=== PATIENT | female | born 1970 | race Caucasian/White ===

== ENCOUNTER 2017-09-21 12:13 | Inpatient (IN) ==
--- NOTE | 2017-09-21 09:36 | Discharge Summary ---
<Sudarshan Vasquez - Last Filed: 09/21/17 14:05> Date of Encounter: 09/21/17 - Discharge Diagnosis (1) Arthritis of right knee Priority: Primary Status: Chronic (2) Status post total right knee replacement Priority: Primary Status: Acute - Hospital Course Hospital course: Ms. Bryson is a 47 year old female - Time Spent with Patient Total time spent providing and/or coordinating discharge services: - Discharge Medications Home Medications: Losartan/Hydrochlorothiazide [Hyzaar 100-25 Tablet] 1 each PO DAILY 06/21/15 [ History] Metaxalone [Skelaxin] 800 mg PO BID PRN 06/21/15 [History] Metoprolol XL (24 HR) Succ [Toprol Xl] 25 mg PO DAILY 06/21/15 [History] Venlafaxine HCl [Effexor Xr] 75 mg PO BID 06/21/15 [History] diazePAM [Valium] 5 mg PO BID PRN 06/21/15 [History] Atorvastatin [Lipitor] 40 mg PO HS 01/10/17 [History] Aspirin Enteric Coated [Aspirin EC] 325 mg PO BID #20 tablet. 09/21/17 [Rx] Ibuprofen [Motrin] 800 mg PO Q8HR #30 tablet 09/21/17 [Rx] OxyCODONE Immed Rel [Roxicodone 5 MG] 5 mg PO Q4HR PRN 5 Days #20 tablet [Rx] Allergies/Adverse Reactions: 3 Allergy/AdvReac Type Severity Reaction Status Date / Time No Known Allergies Allergy Verified 09/13/17 14:37 Primary care physician: Garry Chavez DO - Patient Status Disposition: Home Health Service Condition: Good - Discharge Instructions Follow Up With: Kavin Chavez DO [Primary Care Provider] - 10/08/17 9:30 am <Opal Barillas - Last Filed: 09/24/17 13:30> Orders not resulted at time of discharge: Pending orders 09/21/17 14:46 Surgical Pathology [PTH] Routine Date of Encounter: 09/24/17 Time of Encounter: 09:30 - Discharge Diagnosis (1) Status post total right knee replacement Priority: Primary Status: Acute (2) Arthritis of right knee Priority: Primary Status: Chronic - Hospital Course Hospital course: Ms. Bryson is a 47 year old female POD#3 Date of procedure: 09/21/17 Pre-op diagnosis: Right knee arthritis Post-op diagnosis: same Procedure: Right robotic-assisted Total knee replacement Dr. Vasquez Patient stayed through weekend secondary to difficulty with pain control. Patient remained alert and oriented x 3 and distally neurovascularly intact through her hospital stay. Operative extremity - Incision intact with zipline and honeycomb, dressing is clean and dry. All questions and concerns addressed. Educated on use of incentive spirometer, ambulation, and hydration. Patient educated on post-operative restrictions and care. Plan: Therapy participation: continue - patient states she has stairs at home - work with therapy this afternoon on this, then discharge with home health Pain control: PO PRN, Cryocuff/ice pack Knee immobilizer while sleeping x 2 weeks. Discharge plan: Home with home health today after working with therapy on stairs. - Time Spent with Patient Total time spent providing and/or coordinating discharge services: Less than 30 minutes Date of admission: 09/21/17 17:01 Primary care physician: Garry Chavez DO Consults: 09/21/17 17:30 Consult to Occupational Therapy [CONS] Routine Comment: Evaluate, develop and implement POC Reason for Consult: post knee surgery Does patient have active BEDREST order?: No Is patient medically & hemodynamically stable?: Yes Consult to Orthopedic Navigator [CONS] [CONS] Routine Consult to Physical Therapy [CONS] Routine Comment: Evaluate, develop and impliment POC Reason for Consult: post knee surgery Does patient have active BEDREST order?: No Is patient medically & hemodynamically stable?: Yes Consult to Composing Room Machinist Apprentice [CONS] Routine Reason for SW Consult: post op joint replacement RT Post Op Consult [CONS] Routine Anticipated date of discharge: 09/24/17 Labs on day of discharge: Laboratory Results - last 72 hr 09/21/17 09/21/17 09/22/17 12:36 15:31 00:58 Hgb 12.9 11.3 L D Hct 39.6 35.3 Sodium Potassium Chloride Carbon Dioxide BUN Creatinine Est GFR ( Amer) Est GFR (Non-Af Amer) BUN/Creatinine Ratio Glucose Calculated Osmolality Calcium POC Urine HCG, Qual Negative 09/22/17 09/23/17 09/23/17 00:58 05:58 05:58 Hgb 10.2 L Hct 31.6 L Sodium 132 L 137 Potassium 4.1 3.7 Chloride 101 102 Carbon Dioxide 25 28 BUN 14 15 Creatinine 0.97 0.90 Est GFR ( Amer) > 60 > 60 Est GFR (Non-Af Amer) > 60 > 60 BUN/Creatinine Ratio 14 17 Glucose 161 H 120 H Calculated Osmolality 278 L 286 Calcium 9.2 8.9 POC Urine HCG, Qual Vital Signs Temp Pulse Resp BP Pulse Ox 09/24/17 12:30 112/75 09/24/17 11:42 97.9 F 85 16 108/70 98 09/24/17 11:32 87/49 09/24/17 06:56 98.5 F 78 16 90/59 96 09/24/17 04:28 99.1 F 82 16 116/70 94 09/23/17 23:35 99.1 F 82 16 90/54 94 09/23/17 19:56 98.9 F 86 16 92/59 97 09/23/17 15:38 97.6 F 75 92/57 96 Intake and Output 09/23/17 09/24/17 09/24/17 23:59 07:59 15:59 Intake Total 1110 / 1110 700 / 700 Balance 1110 / 1110 700 / 700 Intake: Oral 1110 / 1110 700 / 700 Other: Meal Dinner Percent of Meal Consumed 100% Weight 120.9 kg - Impressions ITS Impressions Knee X-Ray 09/21/17 09:38 IMPRESSION: Right knee arthroplasty. No radiographic evidence complication. D/ / Rajat Jha MD / Rajat Jha MD Interpreting Provider: Rajat Jha MD - Patient Status Functional capacity at discharge: uses cane/walker Overall status at discharge: patient is progressing back to baseline - Diet and Activity Activity: as per physical therapy Diet: advance to your usual diet
[2017-09-21] MEDS ORDERED: *HR* FentaNYL (PF) 100 MCG/2 ML VIAL ONE ×2 (12:22→14:40)
[2017-09-21] MEDS ORDERED: Ondansetron 4 MG/2 ML VIAL ONE (12:22)
[2017-09-21] MEDS ORDERED: Lidocaine -MPF 2% 2 ML VIAL ONE (12:22)
[2017-09-21] MEDS ORDERED: *HR* Midazolam HCl 2 MG/2 ML VIAL ONE (12:23)
[2017-09-21] MEDS ORDERED: *HR* Propofol 200 MG/20 ML VIAL IVP ONE (12:24)
[2017-09-21] MEDS ORDERED: Dexamethasone 4 MG/ML VIAL ONE ×2 (12:27→14:08)
--- NOTE | 2017-09-21 12:32 | History & Physical Report ---
Date of Encounter: 09/21/17 Time of Encounter: 12:32 24 Hour HP Update - Instructions Instructions: If the History and Physical is less than 30 days old and was completed prior to A.M. admission and or procedure and has NOT been updated on calendar day of procedure please complete this update prior to performing procedure. - Update Patient reports changes in Medical Condition: No Changes in examination, assessment, or condition: No Changes in Medication: No Preop tests/diagnostics Reviewed: Yes Surgery Remains Indicated: Yes Consent for Planned Operative Procedure(s) Verified: Yes - Pre-Operative Checklist Preoperative Checklist Indicated: No Prophylactic Antibiotic Ordered: Yes Is VTE Prophylaxis Indicated?: Yes
[2017-09-21] MEDS ORDERED: CeFAZolin Syr 3,000MG/30 ML 3,000 MG/30 ML SYRINGE IVPB ONE (12:48)
[2017-09-21] MEDS ORDERED: Famotidine 20 MG/2 ML VIAL IVP ONE (12:48)
[2017-09-21] MEDS ORDERED: Acetaminophen IV 1,000 MG/100 ML INFUS..BTL IVPB ONE (12:49)
[2017-09-21] MEDS ORDERED: Pregabalin 75 MG CAPSULE PO ONE ×2 (12:49→16:58)
--- NOTE | 2017-09-21 12:49 | Physician Discharge Referral ---
<Sudarshan Vasquez - Last Filed: 09/21/17 15:00> - Diagnosis (1) Arthritis of right knee Status: Chronic (2) Status post total right knee replacement Status: Acute - Respiratory Orders Smoking Cessation: Smoking cessation has been advised. For more information, call the [place] Tobacco Quit Line at 6-986-VLJF-NOW. - Transfer Medications Home Medications: Losartan/Hydrochlorothiazide [Hyzaar 100-25 Tablet] 1 each PO DAILY 06/21/15 [ History] Metaxalone [Skelaxin] 800 mg PO BID PRN 06/21/15 [History] Metoprolol XL (24 HR) Succ [Toprol Xl] 25 mg PO DAILY 06/21/15 [History] Venlafaxine HCl [Effexor Xr] 75 mg PO BID 06/21/15 [History] diazePAM [Valium] 5 mg PO BID PRN 06/21/15 [History] Atorvastatin [Lipitor] 40 mg PO HS 01/10/17 [History] Aspirin Enteric Coated [Aspirin EC] 325 mg PO BID #20 tablet. 09/21/17 [Rx] Ibuprofen [Motrin] 800 mg PO Q8HR #30 tablet 09/21/17 [Rx] OxyCODONE Immed Rel [Roxicodone 5 MG] 5 mg PO Q4HR PRN 5 Days #20 tablet [Rx] Allergies/Adverse Reactions: 3 Allergy/AdvReac Type Severity Reaction Status Date / Time No Known Allergies Allergy Verified 09/13/17 14:37 Certification: Further, I certify that my clinical findings support that this patient is homebound (i.e. absences from home require considerable and taxing effort and are for medical reasons or mandaen services or infrequently or short duration when for other reasons) because: Homebound Reason: Patient requires assistance of a person or device to safely leave home Attestation: My signature below is to certify that this patient is under my care and that I, or nurse practitioner, or a physician's library circulation assistant working with me, has a face-to -face encounter with this patient. <Opal Barillas - Last Filed: 09/21/17 21:37> Home Health/Hosp Referral Info Transfer to: Home Health Attending Provider: Dr. Sudarshan Vasquez Provider in Charge Post Discharge: PCP - Diagnosis (1) Status post total right knee replacement Priority: Primary Status: Acute (2) Arthritis of right knee Priority: Primary Status: Chronic - Respiratory Orders Smoking Cessation: Smoking cessation has been advised. For more information, call the [place] Tobacco Quit Line at 2-970-WHZC-NOW. - Dressing/Wound Care Site: Right knee Type of Dressing/Treatments w/Frequency: Opsite placed. Keep dressing intact until first follow up appointment. If greater than 50% saturated, notify office, remove dressing and place appropriate dressing back in place. Leave Zipline intact. Opsite dressing is water resistant, not water-proof. OK to shower, but do not get dressing wet. - Diet/Nutrition Diet/Nutrition Orders: Regular - Activity Activity Orders: Up ad chandler, Ambulate, Chair, Walker Activity: List: Total Knee replacement Precautions x 6 weeks Apply cold therapy wrap 3-6x/day for 20 minutes at a time. Encourage ambulation throughout the day and incentive spirometer 10x/hour. Elevate affected extremity above heart as tolerated. Brace: Wear knee immobilizer at night x 2 weeks. - Services Needed Following services are medically necessary services: Nursing, Home Health Aide, Physical Therapy, Occupational Therapy, Med Social Work Certification: Further, I certify that my clinical findings support that this patient is homebound (i.e. absences from home require considerable and taxing effort and are for medical reasons or mandaen services or infrequently or short duration when for other reasons) because: Homebound Reason: Post-surgery restriction and or conditions limit ability to leave home Attestation: My signature below is to certify that this patient is under my care and that I, or nurse practitioner, or a physician library circulation assistant working with me, has a face-to- face encounter with this patient.
--- NOTE | 2017-09-21 12:49 | Physician Discharge Referral ---
<Sudarshan Vasquezh - Last Filed: 09/21/17 15:00> - Diagnosis (1) Arthritis of right knee Status: Chronic (2) Status post total right knee replacement Status: Acute - Transfer Medications Home Medications: Losartan/Hydrochlorothiazide [Hyzaar 100-25 Tablet] 1 each PO DAILY 06/21/15 [ History] Metaxalone [Skelaxin] 800 mg PO BID PRN 06/21/15 [History] Metoprolol XL (24 HR) Succ [Toprol Xl] 25 mg PO DAILY 06/21/15 [History] Venlafaxine HCl [Effexor Xr] 75 mg PO BID 06/21/15 [History] diazePAM [Valium] 5 mg PO BID PRN 06/21/15 [History] Atorvastatin [Lipitor] 40 mg PO HS 01/10/17 [History] Aspirin Enteric Coated [Aspirin EC] 325 mg PO BID #20 tablet. 09/21/17 [Rx] Ibuprofen [Motrin] 800 mg PO Q8HR #30 tablet 09/21/17 [Rx] OxyCODONE Immed Rel [Roxicodone 5 MG] 5 mg PO Q4HR PRN 5 Days #20 tablet [Rx] Allergies/Adverse Reactions: 3 Allergy/AdvReac Type Severity Reaction Status Date / Time No Known Allergies Allergy Verified 09/13/17 14:37 - Respiratory Orders Smoking Cessation: Smoking cessation has been advised. For more information, call the [employer] Quit Line at 2-150-HEHNNOW. CERTIFICATION: I certify that the transfer of the above named patient to an Extended Care Facility is necessary for the continuing treatment of the diagnosis listed. The above information is true and accurate reflection of patient's current condition. Confidential - Redisclosure prohibited without a patient's written consent. <Opal Barillas - Last Filed: 09/21/17 21:38> ExtendedCare Referral Info Transfer To: [facility] Provider in Charge: Dr Sudarshan Vasquez Provider in Charge after Transfer: PCP - Diagnosis (1) Status post total right knee replacement Priority: Primary Status: Acute (2) Arthritis of right knee Priority: Primary Status: Chronic Expected Duration of Placement: less than 30 days Prognosis: Good Aware of Diagnosis: Patient Aware of Prognosis: Patient - Respiratory Orders Smoking Cessation: Smoking cessation has been advised. For more information, call the [place] Tobacco Quit Line at 3-025-LKAB-NOW. - Ancillary Orders May use pressure relief devices daily prn, May go on CAROLYN w/family/respon republican w /meds at nurse discretion PRN, May consult with Dentist, Retail Supervisor, Band Manager PRN - Mobility Orders Chair, Ambulate - Rehabiliation Orders Rehab Potential: Good Rehab Orders: Evaluation for Physical Therapy, Evaluation for Occupational Therapy Other: Total Knee replacement Precautions x 6 weeks Apply cold therapy wrap 3-6x/day for 20 minutes at a time. Encourage ambulation throughout the day and incentive spirometer 10x/hour. Elevate affected extremity above heart as tolerated. Brace: Wear knee immobilizer at night x 2 weeks. - Treatments Skin tear care topically daily PRN per policy List/Other: Opsite placed. Keep dressing intact until first follow up appointment. If greater than 50% saturated, notify office, remove dressing and place appropriate dressing back in place. Leave Zipline intact. Opsite dressing is water resistant, not water-proof. OK to shower, but do not get dressing wet. - Diet Orders Regular CERTIFICATION: I certify that the transfer of the above named patient to an Extended Care Facility is necessary for the continuing treatment of the diagnosis listed. The above information is true and accurate reflection of patient's current condition. Confidential - Redisclosure prohibited without a patient's written consent.
[2017-09-21] MEDS ORDERED: ROPIVACAINE HCL/PF 0.5% 30 ML VIAL ONE (12:50)
[2017-09-21] MEDS ORDERED: Bupivacaine/Clonidine Syringe 1 EACH SYRINGE ONE ×2 (12:50→16:12)
[2017-09-21] MEDS ORDERED: Ethanol\\Acetic Acid\\Na Ace\\Ben 1,000 ML IRRIG.SOLN IR ONE (12:52)
--- NOTE | 2017-09-21 12:53 | Anesthesia Evaluation PreOp ---
Date of Encounter: 09/21/17 Time of Encounter: 12:53 - Past History Planned Operation: Robotic R-TKR Cardiac History: HTN, Hyperlipidemia Pulmonary History: Denies Any Significant HX ARNP History: Other (Anxiety/Depression. Chronic Pain. Neck Pain,) Other Medical History: GERD Anesthesia History: No Prior Anesthetic Complications, Past Anesthesia (C- section, Jane, Spinal Fusion, R-knee scope/PMM, R-knee scope, PatelooFemoral ligament reconstruction 12/2016) : No Test: Negative Alcohol Use: occasionally Drug use: none Medications and Allergies Hydrocodone/Acetaminophen [[place] 7.5-325 Tablet] 1 tab PO Q6H PRN MDD 3 tablets daily 06/21/15 [History] Losartan/Hydrochlorothiazide [Hyzaar 100-25 Tablet] 1 each PO DAILY 06/21/15 [ History] Metaxalone [Skelaxin] 800 mg PO BID PRN 06/21/15 [History] Metoprolol XL (24 HR) Succ [Toprol Xl] 25 mg PO DAILY 06/21/15 [History] Venlafaxine HCl [Effexor Xr] 75 mg PO BID 06/21/15 [History] diazePAM [Valium] 5 mg PO BID PRN 06/21/15 [History] Atorvastatin [Lipitor] 40 mg PO HS 01/10/17 [History] Clindamycin [Cleocin] 150 mg PO Q6HR 2 Days #7 capsule 01/10/17 [Rx] Ibuprofen [Motrin] 600 mg PO Q6HR PRN 7 Days #28 tab 01/10/17 [Rx] Lactobacillus Acidophilus [Acidophilus Probiotic] 1 mg PO DAILY 01/10/17 [ History] Aspirin Enteric Coated [Aspirin EC] 325 mg PO BID #20 tablet. 09/21/17 [Rx] Ibuprofen [Motrin] 800 mg PO Q8HR #30 tablet 09/21/17 [Rx] OxyCODONE Immed Rel [Roxicodone 5 MG] 5 mg PO Q4HR PRN 5 Days #20 tablet [Rx] 3 Allergy/AdvReac Type Severity Reaction Status Date / Time No Known Allergies Allergy Verified 09/13/17 14:37 - Meds/Allergy Pre-op Review Medications Reviewed: Yes Allergies Reviewed: Yes Beta Blockers on Current Med List: No Anesthesia Results - Labs Laboratory Tests 09/13/17 09/13/17 09/13/17 14:38 14:55 14:55 WBC 6.9 Hgb 13.8 Plt Count 299 PT 10.1 INR 0.9 APTT 35.1 Sodium Potassium Chloride Carbon Dioxide BUN Creatinine Est GFR ( Amer) Est GFR (Non-Af Amer) Serum , Qual Inconclusive 09/13/17 14:55 WBC Hgb Plt Count PT INR APTT Sodium 137 Potassium 3.6 Chloride 99 Carbon Dioxide 31 H BUN 16 Creatinine 1.02 Est GFR ( Amer) > 60 Est GFR (Non-Af Amer) 58 L Serum , Qual Anesthesia Exam O2 Sat Height 1.65 m Height 1.65 m Weight 121.563 kg Weight 121.563 kg O2 Sat by Pulse Oximetry 93 Vital Signs Temp Pulse Resp BP Pulse Ox 98.5 F 80 18 132/87 93 09/21/17 12:37 09/21/17 12:37 09/21/17 12:37 09/21/17 12:37 09/21/17 12:37 Height: 5'5" Weight: 268# BMI = 46 NPO (# of Hours): MNoc - HEENT Pupil (Motor): Pupils equal, EOMI Mallampati: II Teeth: Normal ([place]) Oral Opening: Greater than 3 - ARNP LOC: Oriented ARNP Motor: Normal RUE, Normal LUE, Normal RLE, Normal LLE, Normal Face ARNP Sensory: Normal: RUE, LUE, RLE, LLE, Face - Cardiac Rhythm: Regular Murmur: None - Pulmonary Breath Sounds: bilateral Clear Respiratory Effort: Symmetrical Anesthesia Assess/Plan ASA Score: 3 Modified [place] Scale for Level of Consciousness: Cooperative, oriented, and tranquil Anesthetic Plan: General, Regional Monitoring Plan: Standard Monitors Recovery Plan: PACU Anes Supervising Prov Stmt: Pt seen/evaluated, R&B Discussed, questions answered and consent obtained .Juan C Starks MD
[2017-09-21] MEDS ORDERED: Pregabalin 75 MG CAPSULE ONE ×2 (13:08→16:55)
[2017-09-21] MEDS: Ringers Solution, Lactated 1,000 ML IVC SCH ×3 (13:11→21:10)
--- NOTE | 2017-09-21 13:31 | Anesthesia Procedures ---
Date of Encounter: 09/21/17 Time of Encounter: 13:25 Procedures: Anesthesia - Nerve Block Procedure Date: 09/21/17 Time: 13:25 Surgical Procedure: right robotic total knee Checklist: Correct Patient Identifier, Correct procedure, History checked Correct side: Right Blood Thinner: No Monitor Applied: EKG, BP, Pulse Oximetry Supplemental Oxygen via Nasal Cannula (L/min): 2 Sedation: Versed (mg): 2 Sedation: Fentanyl (mcg): 100 Indication: Post Op Analgesia Pre-op Neuro Deficits: No Block Type: Other (adductor canal/iPACK) Catheter placed: No Sterile Technique: Yes Ultrasound used: Yes Anatomy identified: Yes Visual spread of Local: Yes Neuro Stimulation: No Blood on Needle Aspiration: No Smooth Injection of Local: Yes Pain with Injection of Local: No Prep: Chlorhexadine Needle: 21 x 100 mm Stimuplex Local: 0.25% Bupivicaine w/Clonidine 20 mcg/cc (20 ml), Ropivacaine (0.5% with 8 of decadron 30 ml) Volume (cc): 50 ml total Number of Attempts: 1 Complications: None/effective block Vitals: Vital Signs/O2 Sat, Most Current Temp Pulse Resp BP Pulse Ox 98.5 F 72 16 120/80 98 09/21/17 12:56 09/21/17 13:28 09/21/17 13:28 09/21/17 13:28 09/21/17 13:28 Comments: performed by yasmin pfeiffer
[2017-09-21] MEDS ORDERED: EPHEDrine 50 MG/ML VIAL ONE (14:35)
[2017-09-21] MEDS ORDERED: *HR* OxyCODONE Immed Rel 5 MG TABLET PO PRN (14:38)
[2017-09-21] MEDS ORDERED: Naloxone 0.4 MG/ML INJ IVP PRN ×2 (14:38→17:30)
[2017-09-21] MEDS ORDERED: *HR* Promethazine 25 MG/ML VIAL IVP PRN (14:38)
[2017-09-21] MEDS ORDERED: *HR* Labetalol 100 MG/20 ML MDV IVP PRN (14:38)
--- NOTE | 2017-09-21 15:03 | Orthopedic Operative Note ---
Date of procedure: 09/21/17 Pre-op diagnosis: Right knee arthritis Post-op diagnosis: same Procedure: Procedure right: robotic-assisted Total knee replacement Estimated blood loss: 200 cc Hardware: Metal and polyethylene replacement. [place] Femur: 4 Tibia: 3 TS insert:13 Patella: 36 Exam Under anesthesia: 9 degree hyperextension 7 degree varus as calculated by the robot full flexion and no instability Procedural Notes: Grade 3 arthritic changes medial compartment patellofemoral joint. Operative procedure: The patient was brought to the operating room and placed on the operating room table. After general anesthesia was administered the operative knee was examined. Findings were noted in the exam under anesthesia. The operative extremity was prepped and draped in sterile surgical fashion. The patient received IV antibiotics prior to skin incision. A standard midline incision was made centered over the patella. The incision was made through the skin and subcutaneous tissue. A medial parapatellar tendon approach was performed. Care was taken to preserve tissue along the medial aspect of the patella. And to protect the patella tendon. The deep MCL was released off the medial tibia. The infra patella fat pad was excised. The patella was everted and cut was made at the level of the insertion of the quadriceps and patella tendon. The patella was sized to 36 the guide was seated and the lug holes are drilled. Knee was brought into flexion. Patient noted to have grade 3 arthritic changes medial compartment and patellofemoral joint. Steinmann pins were placed in the tibia and the femur for the tibial and femoral arrays respectively. Checkpoints were also placed in the tibia and the femur for calculation purposes. The knee including the femur and the tibial registered. Osteophytes, ACL and PCL were excised at this point. Extension and flexion were assessed with a valgus stress components were adjusted on the computer to balance the knee. Femoral cuts were made first with robotic assistance, these included the anterior cut posterior cuts chamfer cuts. Tibial cut was then performed with robotic assistance as well. Bone fragments were removed, as well as the medial and lateral meniscus. The size 4 femoral guide was seated box cut was made lug holes are drilled. The size 3 tibial tray was seated and prepared with the fin cutter. Trial reduction with the 13 TS Nancy revealed extension of 0 degree and 4 degree varus full flexion. No varus valgus instability. Trial reduction revealed excellent patella tracking. All trial components were removed all bony surfaces were irrigated. The Tibia was seated followed by the femur, The Nancy size 13 was seated and secured patella. Patient had similar findings for motion and stability. The knee was then irrigated out with 2 L of pulse irrigation. The extensor mechanism was closed with #2 FiberWire suture and #2 PDS suture. The subcutaneous tissue was then irrigated and closed deep with #1 PDS suture superficially with 0 PDS suture and skin was closed with zip tie The patient was then placed in a sterile dressing and a postoperative brace extubated and transferred to recovery room in stable condition. Anesthesia: GETA Surgeon: Sudarshan Vasquez Was there an mail handler assistant present: No Estimated blood loss (cc): 200 Condition: stable Disposition: PACU
[2017-09-21] MEDS: *HR* HYDROmorphone (PF) 1 MG/ML SYRINGE IVP PRN ×4 (15:19→15:49)
[2017-09-21] MEDS: *HR* Meperidine 25 MG/ML SYRINGE IVP PRN ×2 (15:48→16:03)
[2017-09-21] MEDS ORDERED: *HR* HYDROmorphone (PF) 1 MG/ML SYRINGE IVP PRN (16:10)
[2017-09-21] MEDS ORDERED: Tetracaine/PF 20 MG/2 ML AMPUL ONE (16:12)
[2017-09-21] MEDS ORDERED: *HR* Midazolam HCl 5 MG/5 ML VIAL IVP ONE ×2 (16:16→16:18)
[2017-09-21 16:27] LABS: Hematocrit 39.6 % (35.3-44.9); Hemoglobin 12.9 g/dL (11.5-15.4)
--- NOTE | 2017-09-21 16:38 | Anesthesia Procedures ---
Date of Encounter: 09/21/17 Time of Encounter: 16:20 Procedures: Anesthesia - Nerve Block Procedure Date: 09/21/17 Time: 16:20 Allergies/Adv Reactions: NKda Surgical Procedure: R-TKR Checklist: Correct Patient Identifier, Correct procedure, History checked Correct side: Right Blood Thinner: No Monitor Applied: EKG, BP, Pulse Oximetry Supplemental Oxygen via Nasal Cannula (L/min): 3 Sedation: Versed (mg): 3 Sedation: Fentanyl (mcg): 0 Indication: Post Op Analgesia Pre-op Neuro Deficits: Yes (Pain, decreased ROM) Block Type: Femoral Catheter placed: No Sterile Technique: Yes Ultrasound used: Yes Anatomy identified: Yes Visual spread of Local: Yes Neuro Stimulation: No Blood on Needle Aspiration: No Smooth Injection of Local: Yes Pain with Injection of Local: No Prep: Chlorhexadine Needle: 21 x 100 mm Stimuplex Local: 0.25% Bupivicaine w/Clonidine 20 mcg/cc, Tetracaine ( + 40mg ), Other (& Decadron ) Volume (cc): 44 Number of Attempts: 1 Vitals: see PACU vitals Anes Supervising Prov Stmt: CTSP re: Post-op surgical pain in PACU. Pt agreed to rescue PNB. Femoral performed at Bedside in PACU without difficulty by JALIL Nixon. VSS and pt comfortable throughout. No immediate complications and pt tolerated procedure well. Juan C Starks MD
[2017-09-21] MEDS ORDERED: *HR* Magnesium Sulfate 1 GM/2 ML VIAL ONE (16:51)
[2017-09-21] MEDS ORDERED: Temazepam 15 MG CAPSULE PO PRN (17:30)
[2017-09-21] MEDS ORDERED: Ondansetron 4 MG/2 ML VIAL IVP PRN (17:30)
[2017-09-21] MEDS ORDERED: MOM Conc 10 ML UD.LIQ PO PRN (17:30)
[2017-09-21] MEDS ORDERED: CeFAZolin Syr 3,000MG/30 ML 3,000 MG/30 ML SYRINGE IVPB SCH (17:30)
[2017-09-21] MEDS ORDERED: Sennosides 8.6 MG TABLET PO PRN (17:30)
[2017-09-21] MEDS ORDERED: *HR* Enoxaparin 30 MG/0.3 ML SYRINGE SQ SCH (18:00)
--- NOTE | 2017-09-21 18:18 | Anesthesia Evaluation Post Op ---
Date of Encounter: 09/21/17 Time of Encounter: 17:15 - Vital Signs Vital Signs: Vital Signs Temp Pulse Resp BP Pulse Ox 09/21/17 17:11 97.8 F 73 14 107/70 95 09/21/17 17:01 75 14 109/74 94 09/21/17 16:51 58 14 107/65 92 09/21/17 16:41 97.5 F L 71 14 101/77 94 09/21/17 16:31 57 14 104/69 100 09/21/17 16:21 56 14 111/59 100 09/21/17 16:11 97.8 F 57 14 116/68 94 09/21/17 16:01 63 14 107/65 94 09/21/17 15:51 54 18 99/60 97 09/21/17 15:41 97.5 F L 70 18 121/70 96 09/21/17 15:31 74 18 118/72 98 09/21/17 15:21 74 18 118/72 98 09/21/17 15:11 97.1 F L 74 18 122/99 97 09/21/17 13:47 70 16 115/80 99 09/21/17 13:37 98.5 F 71 18 108/69 99 09/21/17 13:35 71 18 108/69 99 09/21/17 13:28 72 16 120/80 98 09/21/17 13:15 75 16 122/84 97 09/21/17 12:56 98.5 F 80 18 132/87 93 09/21/17 12:37 98.5 F 80 18 132/87 93 Intake and Output 09/21/17 09/21/17 09/21/17 07:59 15:59 23:59 Intake Total 1000 / 1000 Output Total 200 / 200 Balance -200 / -200 1000 / 1000 Intake: IV Fluids 1000 / 1000 Lactated Ringers 1,000 ML @ 75 1000 / 1000 mls/hr IVC .[id number] [facility] Rx#: [id number] Output: Estimated Blood Loss 200 / 200 Other: Weight 121.563 kg Patient Weight 09/21/17 23:59 Weight 121.563 kg - Lungs Lungs: Clear Ascult./Percussion - Airway Airway: Non-obstructed - Cardiovascular Regular Rate - Mental Status Mental Status: Alert & Oriented, Answers Appropriately - Pain Pain Scale: 5 Pain Scale used: Numeric (1 - 10) - Nausea Vomiting Nausea Vomiting: Not Present - Hydration Hydration: Tolerates oral liquids, Has not voided - Discharge PostOp Status: Transfer Patient to floor Anes Supervising Prov Stmt: PT seen/evaluated, VSS And pt has met criteria for discharge to floor. - Raudel.
[2017-09-21] MEDS: *HR* Enoxaparin 30 MG/0.3 ML SYRINGE SQ SCH (18:23)
[2017-09-21] MEDS: *HR* OxyCODONE Immed Rel 5 MG TABLET PO PRN ×2 (18:23→23:37)
[2017-09-21] MEDS: ceFAZolin 3,000 MG in 0.9 % Sodium Chloride 100 ML IVPB SCH (21:07)
[2017-09-21] MEDS: *HR* OxyCODONE/APAP 5/325 TABLET PO PRN (21:08)
[2017-09-22 01:53] LABS: Hematocrit 35.3 % (35.3-44.9)
[2017-09-22 01:57] LABS: Hemoglobin 11.3 g/dL (11.5-15.4)
[2017-09-22 02:06] LABS: BUN/Creatinine Ratio 14 (6-26); Blood Urea Nitrogen 14 mg/dL (6-20); Calcium 9.2 mg/dL (8.6-10.3); Carbon Dioxide 25 mEq/L (23-29); Chloride 101 mEq/L (98-107); Glucose 161 mg/dL (70-105); Osmolality,Calculated 278 (280-300); Potassium 4.1 mEq/L (3.5-5.1); Sodium 132 mEq/L (136-145); eGFR For Non-African Americans > 60 (> 60)
[2017-09-22] MEDS: *HR* OxyCODONE/APAP 5/325 TABLET PO PRN ×2 (04:43→09:20)
[2017-09-22] MEDS: *HR* Enoxaparin 30 MG/0.3 ML SYRINGE SQ SCH ×2 (05:29→17:12)
[2017-09-22] MEDS: ceFAZolin 3,000 MG in 0.9 % Sodium Chloride 100 ML IVPB SCH (05:30)
[2017-09-22] MEDS: Ringers Solution, Lactated 1,000 ML IVC SCH (07:41)
[2017-09-22] MEDS: Metoprolol XL (24 HR) Succ 25 MG TAB.ER.24H PO SCH (09:20)
[2017-09-22] MEDS: Losartan/HCTZ 50-12.5 TABLET PO SCH (09:20)
--- NOTE | 2017-09-22 09:34 | Orthopedics Progress Note ---
Date of Encounter: 09/22/17 Time of Encounter: 09:32 Subjective Interval history: No overnight events. Knee pain is present but tolerable. Has been up with therapy. Afebrile vital signs stable hemoglobin 11.3 General: No acute distress Knee immobilizer in place operative extremity, dressing is clean dry and intact Distally neurovascularly intact to motor and sensory exam. Continue postoperative management for R TKA Ambulate with therapy. PO pain control. Discharge planning. Objective Vital signs: Vital Signs Temp Pulse Resp BP Pulse Ox 09/22/17 09:23 98 09/22/17 06:45 97.8 F 68 16 134/76 98 09/22/17 04:28 97.5 F L 64 14 132/79 97 09/21/17 23:08 97.9 F 84 14 110/70 96 09/21/17 20:20 97.9 F 81 16 134/84 96 09/21/17 19:20 98.5 F 79 16 109/72 93 09/21/17 18:20 98.0 F 72 18 110/70 94 09/21/17 17:50 97.8 F 76 17 98/67 95 09/21/17 17:11 97.8 F 73 14 107/70 95 09/21/17 17:01 75 14 109/74 94 09/21/17 16:51 58 14 107/65 92 09/21/17 16:41 97.5 F L 71 14 101/77 94 09/21/17 16:31 57 14 104/69 100 09/21/17 16:21 56 14 111/59 100 09/21/17 16:11 97.8 F 57 14 116/68 94 09/21/17 16:01 63 14 107/65 94 18 15:51 54 18 99/60 97 09/21/17 15:41 97.5 F L 70 18 121/70 96 18 15:31 74 18 118/72 98 18 15:21 74 18 118/72 98 18 15:11 97.1 F L 74 18 122/99 97 09/21/17 13:47 70 16 115/80 99 /18 13:37 98.5 F 71 18 108/69 99 18 13:35 71 18 108/69 99 18 13:28 72 16 120/80 98 08/03/18 13:15 75 16 122/84 97 09/21/17 12:56 98.5 F 80 18 132/87 93 09/21/17 12:37 98.5 F 80 18 132/87 93 Intake and Output 09/21/17 09/22/17 09/22/17 23:59 07:59 15:59 Intake Total 1200 / 1200 Output Total 700 / 700 1300 / 1300 Balance 500 / 500 -1300 / -1300 Intake: IV Fluids 1100 / 1100 Lactated Ringers 1,000 ML @ 75 1000 / 1000 mls/hr IVC .[id number] [facility] Rx#: [id number] Ancef 3,000 MG In 0.9 % Sodium 100 / 100 Chloride 100 ML @ 200 mls/hr IVPB Q8H [facility] Rx#:[id number] Oral 100 / 100 Output: Urine 700 / 700 1300 / 1300 - Labs CBC & BMP: 09/22/17 00:58 09/22/17 00:58 Labs: Abnormal lab results Hgb 11.3 g/dL (11.5-15.4) L D 09/22/17 00:58 Sodium 132 mEq/L (136-145) L 09/22/17 00:58 Glucose 161 mg/dL (70-105) H 09/22/17 00:58 Calculated Osmolality 278 (280-300) L 09/22/17 00:58 - VTE Documentation of Mechanical Device: Venous foot pump, device Consult Discharge Plan - Plan Referrals: Kavin Chavez DO [Primary Care Provider] -
[2017-09-22] MEDS: *HR* OxyCODONE Immed Rel 5 MG TABLET PO PRN ×3 (11:06→19:38)
[2017-09-22] MEDS: diazePAM 5 MG TABLET PO PRN (14:46)
[2017-09-22] MEDS: traMADol 50 MG TABLET PO PRN ×2 (16:16→22:49)
[2017-09-22] MEDS: *HR* Morphine Sulfate SR (12 HR) 15 MG TABLET.ER PO PRN (18:20)
[2017-09-23] MEDS: *HR* OxyCODONE Immed Rel 5 MG TABLET PO PRN ×6 (00:42→22:14)
[2017-09-23] MEDS: diazePAM 5 MG TABLET PO PRN (00:49)
[2017-09-23] MEDS: *HR* Enoxaparin 30 MG/0.3 ML SYRINGE SQ SCH ×2 (04:54→17:17)
[2017-09-23 06:26] LABS: Hematocrit 31.6 % (35.3-44.9); Hemoglobin 10.2 g/dL (11.5-15.4)
[2017-09-23] MEDS ORDERED: Acetaminophen IV 1,000 MG/100 ML INFUS..BTL IVPB PRN (06:34)
[2017-09-23] MEDS: Ketorolac 30 MG/ML VIAL IVP PRN (07:25)
[2017-09-23 08:06] LABS: BUN/Creatinine Ratio 17 (6-26); Blood Urea Nitrogen 15 mg/dL (6-20); Calcium 8.9 mg/dL (8.6-10.3); Carbon Dioxide 28 mEq/L (23-29); Chloride 102 mEq/L (98-107); Glucose 120 mg/dL (70-105); Osmolality,Calculated 286 (280-300); Potassium 3.7 mEq/L (3.5-5.1); Sodium 137 mEq/L (136-145); eGFR For Non-African Americans > 60 (> 60)
[2017-09-23] MEDS: Losartan/HCTZ 50-12.5 TABLET PO SCH (08:13)
[2017-09-23] MEDS: Metoprolol XL (24 HR) Succ 25 MG TAB.ER.24H PO SCH (08:13)
[2017-09-23] MEDS: *HR* Morphine Sulfate SR (12 HR) 15 MG TABLET.ER PO PRN (08:32)
--- NOTE | 2017-09-23 10:23 | Orthopedics Progress Note ---
Date of Encounter: 09/23/17 Time of Encounter: 10:23 Subjective Interval history: No overnight events. Resting comfortably. Has been up with therapy. Afebrile vital signs stable hemoglobin 10.2 General: No acute distress Knee immobilizer in place operative extremity, dressing is clean dry and intact Distally neurovascularly intact to motor and sensory exam. Continue postoperative management for R TKA Ambulate with therapy. PO pain control. Discharge planning. Objective Vital signs: Vital Signs Temp Pulse Resp BP Pulse Ox 09/23/17 08:25 98.2 F 82 14 131/84 96 09/22/17 23:58 98.2 F 70 16 119/75 97 09/22/17 19:55 97.8 F 83 16 119/78 94 09/22/17 11:04 97.9 F 85 16 120/77 97 Intake and Output 09/22/17 09/23/17 09/23/17 23:59 07:59 15:59 Intake Total 300 / 300 600 / 600 500 / 500 Balance 300 / 300 600 / 600 500 / 500 Intake: Oral 300 / 300 600 / 600 500 / 500 Other: Meal Breakfast Percent of Meal Consumed 90% # Voids 1 - Labs CBC & BMP: 09/23/17 05:58 09/23/17 05:58 Labs: Abnormal lab results Hgb 10.2 g/dL (11.5-15.4) L 09/23/17 05:58 Hct 31.6 % (35.3-44.9) L 09/23/17 05:58 Glucose 120 mg/dL (70-105) H 09/23/17 05:58 - VTE Documentation of Mechanical Device: Venous foot pump, device Consult Discharge Plan - Plan Referrals: Kavin Chavez DO [Primary Care Provider] -
[2017-09-23] MEDS: Ringers Solution, Lactated 1,000 ML IVC SCH (10:28)
[2017-09-24] MEDS: *HR* OxyCODONE Immed Rel 5 MG TABLET PO PRN (04:47)
[2017-09-24] MEDS: *HR* Enoxaparin 30 MG/0.3 ML SYRINGE SQ SCH (04:48)
[2017-09-24] MEDS: Ketorolac 30 MG/ML VIAL IVP PRN (04:48)
[2017-09-24] MEDS ORDERED: *HR* OxyCODONE Immed Rel 5 MG TABLET PO PRN (08:49)
[2017-09-24] MEDS: Metoprolol XL (24 HR) Succ 25 MG TAB.ER.24H PO SCH (09:05)
--- NOTE | 2017-09-24 09:50 | Orthopedics Progress Note ---
Date of Encounter: 09/24/17 Time of Encounter: 09:15 - Assessment and Plan (1) Status post total right knee replacement Current Visit: Yes Status: Acute (2) Arthritis of right knee Current Visit: Yes Status: Chronic Subjective Principal diagnosis: s/p R TKR Interval history: POD#3 Date of procedure: 09/21/17 Pre-op diagnosis: Right knee arthritis Post-op diagnosis: same Procedure: Right robotic-assisted Total knee replacement Dr. Vasquez No overnight events. Patient stayed through weekend secondary to difficulty with pain control. Patient seen at bedside. Afebrile. Vital signs stable. Labwork and medications reviewed. Exam: Patient sitting in bed. No acute distress. Alert and oriented x 3 Operative extremity - Incision intact with zipline and honeycomb, dressing is clean and dry. No calf tenderness to palpation bilaterally. Distally neurovascularly intact to motor and sensory exam. All questions and concerns addressed. Educated on use of incentive spirometer, ambulation, and hydration. Patient educated on post-operative restrictions and care. Plan: Continue postoperative management for R TKR Therapy participation: continue - patient states she has stairs at home - work with therapy this afternoon on this, then discharge. Pain control: PO PRN, Cryocuff/ice pack Knee immobilizer while sleeping x 2 weeks. Discharge plan: Home with home health today after working with therapy on stairs. Objective Vital signs: Vital Signs Temp Pulse Resp BP Pulse Ox 09/24/17 06:56 98.5 F 78 16 90/59 96 09/24/17 04:28 99.1 F 82 16 116/70 94 09/23/17 23:35 99.1 F 82 16 90/54 94 09/23/17 19:56 98.9 F 86 16 92/59 97 09/23/17 15:38 97.6 F 75 92/57 96 09/23/17 11:47 97.4 F L 85 16 118/65 96 Intake and Output 09/23/17 09/24/17 09/24/17 23:59 07:59 15:59 Intake Total 1110 / 1110 700 / 700 Balance 1110 / 1110 700 / 700 Intake: Oral 1110 / 1110 700 / 700 Other: Meal Dinner Percent of Meal Consumed 100% Weight 120.9 kg - Labs CBC & BMP: 09/23/17 05:58 09/23/17 05:58 Labs: Abnormal lab results Hgb 10.2 g/dL (11.5-15.4) L 09/23/17 05:58 Hct 31.6 % (35.3-44.9) L 09/23/17 05:58 Glucose 120 mg/dL (70-105) H 09/23/17 05:58 - VTE Documentation of Mechanical Device: Venous foot pump, device Consult Discharge Plan - Plan Referrals: Kavin Chavez DO [Primary Care Provider] -
[2017-09-24] MEDS: Losartan/HCTZ 50-12.5 TABLET PO SCH (11:41)
[2017-09-24 12:30] VITALS: BP 112/75
== END 2017-09-24 13:38 | disposition home health service (06) | DRG 470 ==
LOC: SAMDAY 12:13 → 3NENU 17:01
PROVIDERS: ADMIT Orthopaedic Surgery; ATTEND Orthopaedic Surgery

== ENCOUNTER 2019-08-25 14:08 | Inpatient (IN) ==
[2019-08-25] MEDS ORDERED: *HR* Labetalol 20 MG/4 ML SYRINGE IVP PRN (14:26)
[2019-08-25] MEDS ORDERED: Ondansetron 4 MG/2 ML VIAL IVP PRN ×2 (14:26→20:02)
[2019-08-25] MEDS ORDERED: *HR* Promethazine 25 MG/ML VIAL IVP PRN ×2 (14:26→20:02)
[2019-08-25] MEDS ORDERED: *HR* Midazolam HCl 2 MG/2 ML VIAL ONE (14:52)
[2019-08-25] MEDS ORDERED: Ropivacaine/PF 0.5% 30 ML VIAL ONE (14:52)
[2019-08-25] MEDS ORDERED: *HR* FentaNYL (PF) 100 MCG/2 ML VIAL ONE (14:52)
[2019-08-25] MEDS ORDERED: Celecoxib 200 MG CAPSULE PO ONE (14:55)
[2019-08-25] MEDS ORDERED: Celecoxib 100 MG CAPSULE PO ONE (14:55)
[2019-08-25] MEDS ORDERED: CeFAZolin Syr 2,000MG/20 ML 2,000 MG/20 ML SYRINGE IVPB ONE (14:55)
[2019-08-25] MEDS ORDERED: Famotidine 20 MG/2 ML VIAL IVP ONE (14:55)
[2019-08-25] MEDS ORDERED: *HR* OxyCODONE ER (12 HR) 10 MG TABLET PO ONE (14:55)
[2019-08-25] MEDS ORDERED: Ringers Solution, Lactated 1,000 ML IVC SCH ×2 (15:00→20:02)
[2019-08-25] MEDS ORDERED: Ethanol\\Acetic Acid\\Na Ace\\Ben 1,000 ML IRRIG.SOLN IR ONE (15:11)
[2019-08-25] MEDS ORDERED: Vancomycin 1,000 MG VIAL ONE (15:11)
[2019-08-25] MEDS ORDERED: *HR* Succinylcholine 200 MG/10 ML VIAL IVP ONE (15:21)
[2019-08-25] MEDS ORDERED: Ondansetron 4 MG/2 ML VIAL ONE (15:21)
[2019-08-25] MEDS ORDERED: Lidocaine -MPF 4% 5 ML AMPUL ONE (15:21)
[2019-08-25] MEDS ORDERED: *HR* Propofol 200 MG/20 ML VIAL IVP ONE (15:21)
[2019-08-25] MEDS ORDERED: Lidocaine -MPF 2% 2 ML VIAL ONE (15:21)
[2019-08-25] MEDS ORDERED: *HR* Rocuronium Bromide 50 MG/5 ML VIAL ONE (15:21)
[2019-08-25] MEDS ORDERED: Dexamethasone 4 MG/ML VIAL ONE (15:21)
[2019-08-25] MEDS ORDERED: *HR* HYDROMORPHONE 2 MG/ML VIAL ONE (15:51)
[2019-08-25] MEDS ORDERED: Tranexamic Acid 1,000 MG/10 ML VIAL ONE (15:52)
[2019-08-25] MEDS ORDERED: *HR* PHENYLEPHRINE 1,000 MCG/10 ML SYRINGE IVP ONE (16:15)
[2019-08-25] MEDS ORDERED: Total Joint Mixture (50 ml) INTRAART ONE (16:55)
[2019-08-25] MEDS ORDERED: Neostigmine Methylsulfate 3 MG/3 ML SYRINGE ONE (17:11)
[2019-08-25] MEDS: *HR* HYDROmorphone (PF) 1 MG/ML SYRINGE IVP PRN ×6 (18:01→18:58)
[2019-08-25] MEDS ORDERED: *HR* HYDROmorphone PF 0.5 MG/0.5 ML SYRINGE IVP PRN (18:32)
[2019-08-25] MEDS ORDERED: Acetaminophen IV 1,000 MG/100 ML INFUS..BTL IVPB ONE (18:35)
[2019-08-25] MEDS ORDERED: D5% in Water 1,000 ML IVC PRN (20:02)
[2019-08-25] MEDS ORDERED: Metoprolol XL (24 HR) Succ 25 MG TAB.ER.24H PO PRN (20:02)
[2019-08-25] MEDS ORDERED: Naloxone 0.4 MG/ML INJ IVP PRN (20:02)
[2019-08-25] MEDS ORDERED: Sennosides 8.6 MG TABLET PO PRN (20:02)
[2019-08-25] MEDS ORDERED: MOM Conc 10 ML UD.LIQ PO PRN (20:02)
[2019-08-25] MEDS ORDERED: Dextrose Gel 15 GM/37.5 ML TUBE PO PRN ×2 (20:02)
[2019-08-25] MEDS ORDERED: *HR* Dextrose 50 % in Water (Vial) 50 ML VIAL IVP PRN (20:02)
[2019-08-25] MEDS ORDERED: hydroCHLOROthiazide 25 MG TABLET PO PRN (20:02)
[2019-08-25 20:24] LABS: Hematocrit 34.9 % (35.3-44.9); Hemoglobin 10.8 g/dL (11.5-15.4)
[2019-08-25] MEDS: HYDROcodone BIT/Homatropine 5 MG TABLET PO PRN (20:46)
[2019-08-25] MEDS: Ascorbic Acid 500 MG TABLET PO SCH (20:46)
[2019-08-25] MEDS ORDERED: Insulin LISPRO 300 UNITS/3 ML VIAL SQ SCH (21:00)
[2019-08-25] MEDS: Venlafaxine XR (24 HR) 75 MG CAP.ER.24H PO SCH (21:03)
[2019-08-25] MEDS: *HR* OxyCODONE Immed Rel 5 MG TABLET PO PRN (22:39)
[2019-08-26] MEDS: HYDROcodone BIT/Homatropine 5 MG TABLET PO PRN ×3 (00:49→10:54)
[2019-08-26] MEDS: CeFAZolin 2 GM/120 ML BAG IVPB SCH ×2 (00:49→08:15)
[2019-08-26] MEDS: *HR* OxyCODONE Immed Rel 5 MG TABLET PO PRN ×3 (03:41→12:38)
[2019-08-26 06:52] LABS: Hematocrit 33.8 % (35.3-44.9); Hemoglobin 10.2 g/dL (11.5-15.4); Immature Granulocytes % 0.3 % (0-4); Lymphocytes # 0.6 K/mcL (0.6-4.6); Lymphocytes % 7.2 %; Mean Corpuscular HGB Conc 30.2 g/dL (31.6-35.5); Mean Corpuscular Hemoglobin 26.8 pg (28.0-33.3); Mean Corpuscular Volume 88.7 fL (83.0-100.0); Mean Platelet Volume 11.9 fL (9.4-12.4); Monocytes # 0.4 K/mcL (0.0-1.3); Monocytes % 4.2 %; Neutrophils # 7.7 K/mcL (1.6-8.9); Platelet Count 272 K/mcL (140-400); Red Blood Count 3.81 M/mcL (3.82-4.97); Red Cell Distribution Width 14.5 % (11.5-14.5); Segmented Neutrophils % 88.3 %; White Blood Count 8.7 K/mcL (4.3-11.1)
[2019-08-26 07:15] LABS: BUN/Creatinine Ratio 17 (6-26); Blood Urea Nitrogen 19 mg/dL (6-20); Calcium 9.7 mg/dL (8.6-10.3); Carbon Dioxide 26 mEq/L (23-29); Chloride 103 mEq/L (98-107); Glucose 154 mg/dL (70-105); Osmolality,Calculated 283 (280-300); Potassium 4.9 mEq/L (3.5-5.1); Sodium 134 mEq/L (136-145); eGFR For African Americans > 60 (> 60); eGFR For Non-African Americans 51 (> 60)
[2019-08-26] MEDS: Venlafaxine XR (24 HR) 75 MG CAP.ER.24H PO SCH (08:12)
[2019-08-26] MEDS: Ascorbic Acid 500 MG TABLET PO SCH (08:13)
[2019-08-26] MEDS ORDERED: Cyanocobalamin (B-12) 1,000 MCG TABLET PO SCH (09:00)
[2019-08-26] MEDS ORDERED: Multivit/Ca/Min/Fe/FA 1 TAB TABLET PO SCH (09:00)
[2019-08-26] MEDS ORDERED: Aspirin Enteric Coated 81 MG Tablet PO SCH ×2 (09:00)
[2019-08-26] MEDS ORDERED: NON-FORMULARY MEDICATION 1 EACH EACH (Multivitamin [Multivitamins] 1 EACH) PO SCH (09:00)
[2019-08-26] MEDS ORDERED: Vitamin B Complex/Vit C/Vit E 1 EACH TABLET PO SCH (09:00)
[2019-08-26] MEDS ORDERED: Cholecalciferol (D-3) 1,000 UNIT (25MCG) TABLET PO SCH (09:00)
[2019-08-26 10:39] VITALS: BP 103/62
[2019-08-26] MEDS: Insulin LISPRO 300 UNITS/3 ML VIAL SQ SCH ×2 (12:33→12:34)
== END 2019-08-26 14:33 | disposition home health service (06) | DRG 467 ==
LOC: SAMDAY 14:08 → 3NENU 19:45
PROVIDERS: ADMIT Orthopaedic Surgery; ATTEND Orthopaedic Surgery

== ENCOUNTER 2020-02-16 07:55 | Inpatient (IN) ==
[2020-02-16] MEDS ORDERED: ROPIVACAINE/PF/NS 0.25% 1 EACH SYRINGE INTRAART ONE (08:15)
[2020-02-16] MEDS ORDERED: Vancomycin 1,500 MG/265 ML IV.SOLN IVPB ONE (08:17)
[2020-02-16] MEDS ORDERED: Lidocaine -MPF 2% 2 ML VIAL ONE (08:27)
[2020-02-16] MEDS ORDERED: *HR* Midazolam HCl 2 MG/2 ML VIAL ONE ×2 (08:27→10:19)
[2020-02-16] MEDS ORDERED: *HR* FentaNYL (PF) 100 MCG/2 ML VIAL ONE (08:27)
[2020-02-16] MEDS ORDERED: *HR* Propofol 200 MG/20 ML VIAL IVP ONE (08:27)
[2020-02-16] MEDS ORDERED: Ondansetron 4 MG/2 ML VIAL ONE (08:28)
[2020-02-16] MEDS ORDERED: Dexamethasone 4 MG/ML VIAL ONE (08:28)
[2020-02-16] MEDS ORDERED: Ringers Solution, Lactated 1,000 ML IVC SCH ×2 (08:30→12:51)
[2020-02-16] MEDS ORDERED: Gabapentin 300 MG CAPSULE PO ONE (08:50)
[2020-02-16] MEDS ORDERED: Ondansetron 4 MG/2 ML VIAL IVP PRN ×2 (08:52→12:51)
[2020-02-16] MEDS ORDERED: *HR* OxyCODONE Immed Rel 5 MG TABLET PO PRN ×2 (08:52→12:51)
[2020-02-16] MEDS ORDERED: Aspirin Enteric Coated 81 MG Tablet PO SCH (09:00)
[2020-02-16] MEDS ORDERED: Ropivacaine/PF 0.5% 30 ML VIAL ONE (09:19)
[2020-02-16] MEDS ORDERED: Ethanol\\Acetic Acid\\Na Ace\\Ben 1,000 ML IRRIG.SOLN IR ONE (09:28)
[2020-02-16] MEDS ORDERED: Vancomycin 1,000 MG VIAL ONE (09:28)
[2020-02-16] MEDS ORDERED: TOTAL JOINT MIXTURE (100ML) INTRAART ONE (10:00)
[2020-02-16] MEDS ORDERED: Povidone-Iodine 45 ML, Sodium Chloride IRRigation 1,000 ML IR ONE (10:00)
[2020-02-16] MEDS ORDERED: Tranexamic Acid 1,000 MG/10 ML VIAL ONE (10:05)
[2020-02-16] MEDS: *HR* HYDROmorphone PF 0.5 MG/0.5 ML SYRINGE IVP PRN ×4 (11:23→11:45)
[2020-02-16] MEDS ORDERED: *HR* LORazepam 2 MG/ML VIAL ONE (11:54)
[2020-02-16] MEDS ORDERED: *HR* LORazepam 2 MG/ML VIAL IVP ONE (11:59)
[2020-02-16 12:11] LABS: Hematocrit 36.1 % (35.3-44.9)
[2020-02-16] MEDS ORDERED: *HR* HYDROmorphone PF 0.5 MG/0.5 ML SYRINGE IVP PRN (12:12)
[2020-02-16] MEDS ORDERED: *HR* Promethazine 25 MG/ML VIAL IM PRN (12:51)
[2020-02-16] MEDS ORDERED: *HR* Dextrose 50 % in Water (Vial) 50 ML VIAL IVP PRN (12:51)
[2020-02-16] MEDS ORDERED: Sennosides 8.6 MG TABLET PO PRN (12:51)
[2020-02-16] MEDS ORDERED: D5% in Water 1,000 ML IVC PRN (12:51)
[2020-02-16] MEDS ORDERED: MOM Conc 10 ML UD.LIQ PO PRN (12:51)
[2020-02-16] MEDS ORDERED: Naloxone 0.4 MG/ML INJ IVP PRN (12:51)
[2020-02-16] MEDS ORDERED: Dextrose Gel 15 GM/37.5 ML TUBE PO PRN ×2 (12:51)
[2020-02-16] MEDS: Gabapentin 300 MG CAPSULE PO SCH ×2 (15:35→20:12)
[2020-02-16] MEDS: Multivit/Ca/Min/Fe/FA 1 TAB TABLET PO SCH (15:36)
[2020-02-16] MEDS: Insulin LISPRO 300 UNITS/3 ML VIAL SUBQ SCH ×2 (15:38→15:48)
[2020-02-16] MEDS: Ascorbic Acid 500 MG TABLET PO SCH (17:04)
[2020-02-16] MEDS: HYDROcodone BIT/Homatropine 5 MG TABLET PO PRN ×2 (17:04→20:59)
[2020-02-16] MEDS: Venlafaxine XR (24 HR) 75 MG CAP.ER.24H PO SCH (20:12)
[2020-02-16] MEDS: Vancomycin 1,500 MG/265 ML IV.SOLN IVPB SCH (20:12)
[2020-02-16] MEDS ORDERED: Insulin LISPRO 300 UNITS/3 ML VIAL SUBQ SCH (21:00)
[2020-02-16] MEDS: Ketorolac 30 MG/ML VIAL IVP SCH (23:48)
[2020-02-17 01:28] LABS: Basophils % 0.2 %; Hematocrit 34.3 % (35.3-44.9); Hemoglobin 10.6 g/dL (11.5-15.4); Immature Granulocytes % 0.2 % (0-4); Lymphocytes % 15.2 %; Mean Corpuscular HGB Conc 30.9 g/dL (31.6-35.5); Mean Corpuscular Hemoglobin 26.4 pg (28.0-33.3); Mean Corpuscular Volume 85.3 fL (83.0-100.0); Mean Platelet Volume 11.6 fL (9.4-12.4); Monocytes # 0.5 K/mcL (0.0-1.3); Monocytes % 6.9 %; Neutrophils # 5.2 K/mcL (1.6-8.9); Platelet Count 248 K/mcL (140-400); Red Blood Count 4.02 M/mcL (3.82-4.97); Red Cell Distribution Width 15.8 % (11.5-14.5); Segmented Neutrophils % 77.5 %; White Blood Count 6.7 K/mcL (4.3-11.1)
[2020-02-17 01:52] LABS: BUN/Creatinine Ratio 17 (6-26); Blood Urea Nitrogen 12 mg/dL (6-20); Calcium 9.5 mg/dL (8.6-10.3); Carbon Dioxide 26 mEq/L (23-29); Chloride 106 mEq/L (98-107); Glucose 124 mg/dL (70-105); Osmolality,Calculated 287 (280-300); Potassium 4.9 mEq/L (3.5-5.1); Sodium 138 mEq/L (136-145); eGFR For African Americans > 60 (> 60); eGFR For Non-African Americans > 60 (> 60)
[2020-02-17] MEDS: HYDROcodone BIT/Homatropine 5 MG TABLET PO PRN ×2 (04:39→10:25)
[2020-02-17] MEDS: Ketorolac 30 MG/ML VIAL IVP SCH ×2 (05:56→10:24)
[2020-02-17] MEDS: Gabapentin 300 MG CAPSULE PO SCH ×2 (08:53→13:59)
[2020-02-17] MEDS: Venlafaxine XR (24 HR) 75 MG CAP.ER.24H PO SCH (08:53)
[2020-02-17] MEDS: Ascorbic Acid 500 MG TABLET PO SCH (08:53)
[2020-02-17] MEDS: Multivit/Ca/Min/Fe/FA 1 TAB TABLET PO SCH (08:54)
[2020-02-17] MEDS: Insulin LISPRO 300 UNITS/3 ML VIAL SUBQ SCH ×2 (08:57→14:06)
[2020-02-17] MEDS ORDERED: Cholecalciferol (D-3) 1,000 UNIT (25MCG) TABLET PO SCH (09:00)
[2020-02-17] MEDS ORDERED: Aspirin Enteric Coated 81 MG Tablet PO SCH (09:00)
[2020-02-17] MEDS ORDERED: Vitamin B Complex/Vit C/Vit E 1 EACH TABLET PO SCH (09:00)
[2020-02-17] MEDS ORDERED: Cyanocobalamin (B-12) 1,000 MCG TABLET PO SCH (09:00)
[2020-02-17] MEDS ORDERED: NON-FORMULARY MEDICATION 1 EACH EACH (Multivitamin [Multivitamins] 1 EACH) PO SCH (09:00)
[2020-02-17 10:14] VITALS: BP 126/74
[2020-02-17] MEDS: Vancomycin 1,500 MG/265 ML IV.SOLN IVPB SCH (10:25)
[2020-02-17] MEDS ORDERED: FLU Vac QV 20-21 (6Month+)/PF 0.5 ML SYRINGE IM ONE (12:39)
[2020-02-17] MEDS ORDERED: Vancomycin 1,250 MG/262.5 ML IV.SOLN IVPB SCH ×2 (21:00→22:00)
== END 2020-02-17 14:45 | disposition home or self-care (01) | DRG 468 ==
LOC: SAMDAY 07:55 → 3NENU 12:47
PROVIDERS: ADMIT Orthopaedic Surgery; ATTEND Orthopaedic Surgery